=== PATIENT | female | born 1995 | race African-American/Black ===

== ENCOUNTER 2019-10-18 08:59 | Emergency (ER) | payer OTHER ==
[~2019-10-18] VITALS: Ht 162.6 cm; Wt 52.2 kg
[2019-10-18 09:16] VITALS: BP 134/75
== END 2019-10-18 10:34 | disposition home or self-care (01) ==
LOC: ER 09:05
DX: J02.9 Acute pharyngitis, unspecified (principal); R50.9 Fever, unspecified